=== PATIENT | female | born 1965 | race Caucasian/White ===

== ENCOUNTER 2020-12-02 08:08 | Day surgery (SDC) | payer OTHER ==
[~2020-12-02] VITALS: Ht 165.1 cm; Wt 108.6 kg
[~2020-12-02 08:08] MED LIST: ASPIRIN 81 MG CHEWABLE TABLET PO ONE; DIAZEPAM 5 MG TABLET PO ONE; DiphenhydrAMINE HCL 50 MG CAPSULE PO ONE; SODIUM CHLORIDE 0.9% 1,000 ML IV ONE
[2020-12-02] MEDS ORDERED: SODIUM CHLORIDE 0.9% 1,000 ML IV ONE (09:00)
[2020-12-02] MEDS ORDERED: SODIUM CHLORIDE 0.9% 1,000 ML ONE (09:42)
[2020-12-02 10:20] LABS: GLUCOMETER DEV NAME(LOC) SDS.; GLUCOSE,POINT OF CARE 121 MG/DL (70-110)
[2020-12-02] MEDS ORDERED: IOHEXOL 300 MG/ML 150 ML VIAL ONE (10:23)
[2020-12-02] MEDS ORDERED: IOHEXOL 300 MG/ML 50 ML VIAL ONE (10:23)
[2020-12-02] MEDS ORDERED: SODIUM BICARBONATE 50 MEQ/50 ML VIAL ONE (10:23)
[2020-12-02] MEDS ORDERED: HEPARIN SODIUM 1000 UNITS/NS 1,000 ML ONE (10:23)
[2020-12-02] MEDS ORDERED: LIDOCAINE/PF 1% 30 ML VIAL ONE ×2 (10:23→12:48)
[2020-12-02] MEDS ORDERED: IOHEXOL 300 MG/ML 100 ML VIAL ONE (10:24)
[2020-12-02] MEDS ORDERED: ASPIRIN 81 MG CHEWABLE TABLET ONE (10:32)
[2020-12-02] MEDS ORDERED: DiphenhydrAMINE HCL 50 MG CAPSULE ONE (10:32)
[2020-12-02] MEDS ORDERED: DIAZEPAM 5 MG TABLET ONE (10:32)
[2020-12-02] MEDS ORDERED: METF-961 PO (11:14)
[2020-12-02] MEDS ORDERED: METO50 PO (11:14)
[2020-12-02] MEDS ORDERED: LOSA50TA37 PO (11:14)
[2020-12-02] MEDS ORDERED: MIDAZOLAM HCL 2 MG/2 ML VIAL ONE (12:37)
[2020-12-02] MEDS ORDERED: FentaNYL CITRATE PF 100 MCG/2 ML VIAL ONE (12:37)
[2020-12-02 12:38] VITALS: BP 110/58
[2020-12-02] MEDS ORDERED: IOHEXOL 300 MG/ML 150 ML VIAL IARTER ONE (13:00)
[2020-12-02] MEDS ORDERED: MIDAZOLAM HCL 2 MG/2 ML VIAL IVP ONE ×2 (13:00)
[2020-12-02] MEDS ORDERED: FentaNYL CITRATE PF 100 MCG/2 ML VIAL IVP ONE ×2 (13:00)
[2020-12-02] MEDS ORDERED: LIDOCAINE 1% 30 ML/SOD BICARB 8.4% 4 ML SQ ONE (13:00)
[2020-12-02] MEDS ORDERED: HEPARIN SODIUM 1000 UNITS/NS 1,000 ML IARTER ONE (13:00)
[2020-12-02 13:26] VITALS: BP 97/60
== END 2020-12-02 17:30 | disposition home or self-care (01) ==
LOC: CATHLAB 08:08
PROVIDERS: ATTEND Internal Medicine Interventional Cardiology
DX: R07.9 Chest pain, unspecified (principal); R94.39 Abnormal result of other cardiovascular function study; I10 Essential (primary) hypertension; E78.5 Hyperlipidemia, unspecified; E66.01 Morbid (severe) obesity due to excess calories; E11.9 Type 2 diabetes mellitus without complications; Z90.710 Acquired absence of both cervix and uterus; Z98.890 Other specified postprocedural states; Z79.899 Other long term (current) drug therapy
CPT/HCPCS: 82962; 93005; 93458; 99152; 99153; C1760; J1644; J2250; J3010; J3490 ×2; J7030; Q9967